=== PATIENT | male | born 1950 | race Caucasian/White ===

== ENCOUNTER → 2021-01-07 | Outpatient (CLI) | payer MEDICARE, MEDICAID, SELFPAY ==
--- NOTE | 2021-01-26 12:04 | ESHP_ITS ---
RE: ELLYN GARDNER : 1950 DATE OF ADMISSION: 01/07/2021 HISTORY OF PRESENT ILLNESS: This patient is a 70-year-old gentleman with past medical history significant for type 2 diabetes, BPH, chronic lower extremity ulcers, gastric ulcers, ESRD, GI bleeding, anemia requiring blood transfusion, who has refused to do colonoscopy, who came to the hospital with anemia. The patient was admitted under my care for a scheduled blood transfusion with hemodialysis treatment. The patient has been in and out of the hospital due to GI bleeding. He denies chest pain or shortness of breath. He has chronic leg swelling. He denies nausea or vomiting. He denies diarrhea. PAST MEDICAL HISTORY: Diabetes, hypertension, chronic leg ulcers, esophageal and gastric ulcers, MSSA line sepsis. PAST SURGICAL HISTORY: Dialysis catheter placement and removal and endoscopies. SOCIAL HISTORY: He lives in a detention. No smoking, alcohol abuse, or IV drug abuse. ALLERGIES: NO KNOWN DRUG ALLERGIES. PHYSICAL EXAMINATION: Vital Signs: Blood pressure of 138/67, heart rate of 52, temperature 98. HEENT: Anicteric sclerae. Normocephalic. Neck: Supple. No JVD. Chest and Lungs: Symmetrical expansion. Abdomen: Soft. Extremities: 2+ palpable edema. LABORATORY DATA: Hemoglobin 6.7. ASSESSMENT: 1. End-stage renal disease. 2. Anemia, requiring blood transfusion, most likely secondary to gastrointestinal bleeding. 3. Diabetes. 4. History of hypertension. 5. History of noncompliance. PLAN: The patient will have dialysis and blood transfusion today and afterwards will be discharged. We will continue to monitor his H and H as an outpatient. He continues to refuse colonoscopy. DT: 11:03:16 TT: 12:01:00 Ref: [id number] - TID: [id number]
== END | disposition home or self-care (01) ==
PROVIDERS: PCP Family Medicine; Referring Provider Internal Medicine Nephrology; Visit Provider Internal Medicine Nephrology
DX: N18.6 End stage renal disease (principal)